=== PATIENT | male | born 1995 | race Caucasian/White ===

== ENCOUNTER 2017-01-24 08:12 | Emergency (ER) | payer SELFPAY ==
[~2017-01-24 08:12] MED LIST: CEPH500C PO; FAMO20TA5 PO; PRED20TA PO
[2017-01-24 09:00] VITALS: BP 0/0
== END 2017-01-24 09:00 | disposition left against medical advice (07) ==
LOC: EDUNIT# 08:12 → ER 08:14
DX: T15.90XA Foreign body on external eye, part unspecified, unspecified eye, initial encounter (principal)
CPT/HCPCS: 99281

== ENCOUNTER 2018-02-05 19:08 | Emergency (ER) | payer MEDICAID, OTHER ==
[~2018-02-05] VITALS: Ht 188 cm; Wt 104.3 kg
--- OUTSIDE RECORDS SUMMARY | 2018-02-05 19:12 | XMS REPORT ---
Author Author GUERITA RAZO Organization [facility] Address [address] [place] [address] Care Team Providers Care Ward Service Supervisor Name Role Phone GUERITA RAZO Unavailable PROBLEMS Type Condition ICD9-CM Code [id number] Code Onset Dates Condition Status SNOMED Code Problem Unspecified pruritic disorder 698.9 Active 233094526 Problem Rash and other nonspecific skin eruption 782.1 Active 751117620 Problem STATE HEP A (ADULT) DX V05.3 Active [id number] ALLERGIES No Known Allergies ENCOUNTERS Encounter Location Date Diagnosis [facility] [id number] [place] [phone] Dec, [facility] [address] [phone] Dec, Abrasion of sclera of right eye, initial encounter S05.8X1A [address] [id number] [place] [phone] Oct, [id number] [place] [phone] September, [id number] [place] [id number] September, IMMUNIZATIONS No Known Immunizations SOCIAL HISTORY Never Assessed REASON FOR VISIT foreign object in right eye. pt states it is sand off a roll grinder. happened 4 days ago. [email or web address] PLAN OF CARE VITAL SIGNS Height 71 in 2017-01-24 Weight 240.0 lbs 2017-01-24 Temperature 97.0 degrees Fahrenheit 2017-01-24 Heart Rate 84 bpm 2017-01-24 Respiratory Rate 20 2017-01-24 BMI 33.47 kg/m2 2017-01-24 Blood pressure systolic 118 mmHg 2017-01-24 Blood pressure diastolic 68 mmHg 2017-01-24 MEDICATIONS Medication Instructions Dosage Frequency Start Date End Date Duration Status Erythromycin 5 MG/GM Ophthalmic Four times a day 1 application 6h Dec, Jan, 10 day(s) Active RESULTS No Results PROCEDURES No Known procedures INSTRUCTIONS MEDICATIONS ADMINISTERED No Known Medications
--- OUTSIDE RECORDS SUMMARY | 2018-02-05 19:12 | XMS REPORT ---
Author Author WILLIE JACOBSEN Organization [facility] Address [address] [place] [address] Care Team Providers Care Sdet Name Role Phone WILLIE JACOBSEN Unavailable PROBLEMS Type Condition ICD9-CM Code LTM01-UG Code Onset Dates Condition Status SNOMED Code Problem Unspecified pruritic disorder 698.9 Active 793329914 Problem Rash and other nonspecific skin eruption 782.1 Active 904098586 Problem STATE HEP A (ADULT) DX V05.3 Active [id number] ALLERGIES No Information ENCOUNTERS Encounter Location Date Diagnosis [facility] [id number] [place] [phone] Dec, [facility] [id number] [place] [phone] Dec, Abrasion of sclera of right eye, initial encounter S05.8X1A [id number] [place] [phone] Oct, [id number] [place] [phone] September, [id number] [place] [phone] September, IMMUNIZATIONS No Known Immunizations SOCIAL HISTORY Never Assessed REASON FOR VISIT Eye Exam PLAN OF CARE VITAL SIGNS MEDICATIONS Unknown Medications RESULTS No Results PROCEDURES No Known procedures INSTRUCTIONS MEDICATIONS ADMINISTERED No Known Medications
--- OUTSIDE RECORDS SUMMARY | 2018-02-05 19:13 | XMS REPORT | Continuity of Care Document ---
Demographics Preferred Language Unknown Marital Status Unknown Adventism Affiliation Unknown Race Unknown Ethnic Group Unknown Author Author [facility] Address Unknown Phone Unavailable Allergies Active Description Code Type Severity Reaction Onset Reported/Identified Relationship to Patient Clinical Status Yes No Known Drug Allergies [id number] Drug Allergy Unknown N/A 10/10/2014 Medications There is no data. Problems Date Dx Coded Attending Type Code Diagnosis Diagnosed By 10/15/2012 V05.3 HEP B (ADULT) DX 10/15/2012 V05.3 HEP B (ADULT) DX 10/15/2012 V05.3 HEP B (ADULT) DX 11/20/2012 698.9 UNSPECIFIED PRURITIC DISORDER 11/20/2012 782.1 RASH AND OTHER NONSPECIFIC SKIN ERUPTION 10/10/2014 SHYLA HERMOSILLO Ot 708.9 URTICARIA NOS 10/10/2014 SHYLA HERMOSILLO Ot 782.1 NONSPECIF SKIN ERUPT NEC 10/11/2014 KYREE PAZ PASSENGER SCREENER Ot 782.1 NONSPECIF SKIN ERUPT NEC 10/13/2014 KYREE PAZ PASSENGER SCREENER Ot 782.1 12/17/2014 SHYLA HERMOSILLO Ot 881.00 12/17/2014 SHYLA HERMOSILLO Ot E000.0 12/17/2014 SHYLA HERMOSILLO Ot E849.3 12/17/2014 SHYLA HERMOSILLO Ot E920.3 12/20/2014 AMISHA BACH, JULIO CÉSAR [place] Ot V67.9 FOLLOW-UP EXAM NOS 12/26/2014 SHYLA HERMOSILLO Ot 276.50 VOLUME DEPLETION, UNSPECIFIED 12/26/2014 SHYLA HERMOSILLO Ot 780.4 DIZZINESS AND GIDDINESS 12/26/2014 SHYLA HERMOSILLO Ot 786.50 CHEST PAIN NOS 12/26/2014 SHYLA HERMOSILLO Ot 786.59 CHEST PAIN NEC 01/24/2017 MINOR BYNUM MD Ot T15.90XA FOREIGN BODY ON EXTERNAL EYE, PART UNSP, 01/26/2017 MINOR BYNUM MD Ot T15.90XA FOREIGN BODY ON EXTERNAL EYE, PART UNSP, Procedures There is no data. Results There is no data. Encounters ACCT No. Visit Date/Time Discharge Status Pt. Type Provider Facility Loc./Unit Complaint [id number] 11/20/2012 10:48:00 Document Registration [id number] 10/25/2012 13:35:00 Document Registration [id number] 10/15/2012 13:47:00 Document Registration [id number] 12/27/2014 02:23:33 ACT Document Registration [id number] 01/24/2017 08:14:00 01/24/2017 09:00:00 DIS Emergency FLETCHER BACH, MINOR Castano [facility] ER GRINDING WHEEL PIECE IN EYE [id number] 12/26/2014 13:33:00 12/26/2014 17:49:00 DIS Emergency SHYLA HERMOSILLO [facility] ER CHEST PAIN,DIZZINESS [id number] 12/20/2014 21:15:00 12/20/2014 22:16:00 DIS Emergency JULIO CÉSAR LION MD [facility] ER WOUND CHECK [id number] 12/17/2014 19:04:00 12/17/2014 21:00:00 DIS Emergency SHYLA HERMOSILLO [facility] ER [id number] 10/11/2014 11:37:00 10/11/2014 11:52:00 DIS Emergency KYREE PAZ APRN [facility] ER RASH [id number] 10/10/2014 11:34:00 10/10/2014 12:24:00 DIS Emergency SHYLA HERMOSILLO [facility] ER RASH
[2018-02-05] MEDS ORDERED: TETANUS,DIPTH,PERTUSS P/F (BOOSTRIX) 0.5 ML VIAL IM ONE (19:45)
[2018-02-05] MEDS ORDERED: LIDOCAINE 1% INJ 20 ML 20 ML VIAL INJ ONE (20:00)
--- NOTE | 2018-02-05 20:11 | ED Upper Extremity ---
General Chief Complaint: Laceration Stated Complaint: LEFT PINKIE SMASHED Nursing Triage Note: PT AMB TO ROOM #3 W/O DIFFICULTY. A&OX4. CO CRUSHING INJURY TO LT PINKIE FINGER. PT REPORTS HE CRUSHED LT PINKIE FINGER BETWEEN A DAYNA AND A TRACTOR APPROX 1400 THIS AFTERNOON. PT REPORTS HE "THINKS HE MIGHT NEED STITCHES." AREA NOTED TO BE NON APPROXIMATED, WITH SEROSANGUINOUS DRAINAGE. Nursing Sepsis Screen: No Definite Risk Source: patient Exam Limitations: no limitations History of Present Illness Date Seen by Provider: Feb 05, 2018 Time Seen by Provider: 19:20 Initial Comments Patient is a 22-year-old male who presents to the emergency room with reports smashing his left fifth finger in between a dayna and a tractor bucket around 1400 today. There is a laceration to the palmar surface of the left fifth finger that is 2 cm in length. There is also abrasions to the dorsal surface of the left fifth finger. Onset: this afternoon Pain/Injury Location: left 5th finger Method of Injury: other (smash) Allergies and Home Medications Allergies Coded Allergies: No Known Drug Allergies (Unverified , 10/10/14) Home Medications Cephalexin 500 Mg Capsule, 500 MG PO BID Prescribed by: FREDDIE GARCÍA on 02/05/182100 Patient Home Medication List Home Medication List Reviewed: Yes Review of Systems Constitutional: see HPI; No chills, No fever Skin: see HPI, other (laceration to fifth left finger.) All Other Systems Reviewed Negative Unless Noted: Yes Past Maztxuo-Dnzyar-Wwzuty Hx Past Med/Social Hx: Reviewed Nursing Past Med/Soc Hx Patient Social History Recent Foreign Travel: No Contact w/Someone Who Travel: No Recent Infectious Disease Expo: No Immunizations Up To Date Tetanus Booster (TDap): Less than 5yrs Seasonal Allergies Seasonal Allergies: No Past Medical History Reproductive Disorders: No Sexually Transmitted Disease: No Family Medical History Reviewed Nursing Family Hx No Pertinent Family Hx Physical Exam Vital Signs Vital Signs - First Documented 02/05/18 19:12 Temp 97.8 Pulse 75 Resp 16 B/P (MAP) 144/81 (102) Pulse Ox 97 O2 Delivery Room Air Capillary Refill : Less Than 3 Seconds Height, Weight, BMI Height: 6'2.00" Weight: 230lbs. oz. 104.849519kz; BMI Method:Stated General Appearance: WD/WN, no apparent distress HEENT: PERRL/EOMI, normal ENT inspection, TMs normal, pharynx normal Cardiovascular: normal peripheral pulses, regular rate, rhythm, no edema, no gallop, no JVD, no murmur Respiratory: chest non-tender, lungs clear, normal breath sounds, no respiratory distress, no accessory muscle use Hand: Left (fifth finger laceration) Neurologic/Tendon: normal sensation, normal motor functions, normal tendon functions Neurologic/Psychiatric: alert, normal mood/affect, oriented x 3 Skin: normal color, warm/dry, other (2 cm laceration to the palmar surface of the left fifth finger. Skin flap to the palmar surface of the left fifth finger. ) Procedures/Interventions Wound Location: Lower Extremities (left fifth finger) Wound Length (cm): 2 Wound's Depth, Shape: linear, flap Irrigated w/ Saline (ccs): 300 Betadine Prep?: Yes Anesthesia: 1% Lidocaine Volume Anesthetic (ccs): 3 Suture: Prolene Suture Size: 5-0 Number of Sutures: 4 Progress The laceration anesthetized with 3 mL of lidocaine without epinephrine. The wound was cleaned and irrigated with normal saline and Betasept and Betadine with approximately 300 ml irrigation, foreign bodies were irrigated out. The wound was closed with 4 simple interrupted sutures of 5-0 Prolene. Bleeding was controlled and minimal. A dressing of Telfa soft and a finger splint/ immobilizer was applied. Progress/Results/Core Measures Results/Orders My Orders Orders - BERNOT,FREDDIE Finger(S) (02/05/18 19:36) Dipht,Pertuss(Acell),Tet Adult (Boostrix (02/05/18 19:45) Lidocaine 1% Inj 20 Ml (Xylocaine 1% Inj (02/05/18 20:00) Cephalexin Capsule (Keflex Capsule) (02/05/18 21:15) Acetaminophen Tablet (Tylenol Tablet) (02/05/18 21:15) Medications Given in ED Current Medications Medications Dose Ordered Sig/Nelson Route Start Time Stop Time Status Last Admin Dose Admin Acetaminophen 1,000 mg ONCE ONCE PO 02/05/18 21:15 02/05/18 21:16 DC 02/05/18 21:13 1,000 MG Cephalexin HCl 500 mg ONCE ONCE PO 9/11/18 21:15 02/05/18 21:16 DC 02/05/18 21:13 500 MG Diphtheria/ Tetanus/Acell Pertussis 0.5 ml ONCE ONCE IM 02/05/18 19:45 02/05/18 19:46 DC 02/05/18 20:06 0.5 ML Lidocaine HCl 20 ml ONCE ONCE INJ 02/05/18 20:00 02/05/18 20:01 DC 02/05/18 20:09 10 ML Vital Signs/I&O 02/05/18 19:12 Temp 97.8 Pulse 75 Resp 16 B/P (MAP) 144/81 (102) Pulse Ox 97 O2 Delivery Room Air Blood Pressure Mean: 102 Progress Progress Note : Time: 21:00 Progress Note Patient seen and evaluated the patient. I will be treating him prophylactically with Keflex for infection. He agrees with plan of care, plans for follow-up, return precautions were given. Diagnostic Imaging Diagonstic Imaging: Xray Plain Films/CT/US/NM/MRI: hand Comments VIA [facility]. [place], [place] NAME: KATHY MUSTAFA [facility] REC#: [id number] PT STATUS: REG ER : 1995 PHYSICIAN: FREDDIE GARCÍA ADMIT DATE: 02/05/18/ER Draft Date of Exam:02/05/18 FINGER(S) EXAMINATION: Left hand, single view. Left fifth finger, 2 additional views. COMPARISON: None. HISTORY: 22-year-old male, smashing injury and laceration of the fifth digit. FINDINGS: There is abnormal attenuation within the soft tissues of the fifth digit compatible with provided history of soft tissue injury. There are small punctate high attenuation foci projecting near the volar skin surface centered in the region of the fifth proximal interphalangeal joint which may relate to foreign bodies. These measure 1-2 mm in size. There is no identified acute fracture. There is no subluxation or dislocation. There is no cortical or aggressive bone destruction. IMPRESSION: 1. Findings compatible with soft tissue injury of the fifth digit with findings most notable at the level of the fifth proximal interphalangeal joint with multiple small 1-2 mm foreign bodies projecting near the volar skin margin. 2. No identified acute fracture or dislocation. Dictated on workstation # [id number] Dict: 02/05/182014 Trans: 02/05/18 2037 JUAN [id number] Interpreted by: TONIO SANTANA MD Electronically signed by: Departure Impression Primary Impression: Laceration Disposition: 01 HOME, SELF-CARE Condition: Stable/Unchanged Departure-Patient Inst. Decision time for Depature: 21:00 Referrals: NO,LOCAL PHYSICIAN (PCP) Primary Care Physician Patient Instructions: Laceration Repair With Stitches (DC) Add. Discharge Instructions: Take medication as directed. Watch for signs of infection such as increased redness, drainage, swelling, fevers. Change dressing daily. He can return back here to the emergency room in 7 days for suture removal. Return back to the emergency room for any worsening symptoms or concerns as needed. All discharge instructions reviewed with patient and/or family. Voiced understanding. Scripts Cephalexin (Keflex) 500 Mg Capsule 500 MG PO BID for 7 Days, #14 CAP Prov: FREDDIE GARCÍA 02/05/18 Images Extremities-Upper 1 - Abrasion 2 - Abrasion 3 - Abrasion 1 - Laceration 2 - Other-See Progress Note 3 - Other-See Progress Note Progress 2 and 3 are skin flaps. FREDDIE GARCÍA Feb 05, 2018 20:11
--- NOTE | 2018-02-05 20:38 | Diagnostic Imaging Report ---
EXAMINATION: Left hand, single view. Left fifth finger, 2 additional views. COMPARISON: None. HISTORY: 22-year-old male, smashing injury and laceration of the fifth digit. FINDINGS: There is abnormal attenuation within the soft tissues of the fifth digit compatible with provided history of soft tissue injury. There are small punctate high attenuation foci projecting near the volar skin surface centered in the region of the fifth proximal interphalangeal joint which may relate to foreign bodies. These measure 1-2 mm in size. There is no identified acute fracture. There is no subluxation or dislocation. There is no cortical or aggressive bone destruction. IMPRESSION: 1. Findings compatible with soft tissue injury of the fifth digit with findings most notable at the level of the fifth proximal interphalangeal joint with multiple small 1-2 mm foreign bodies projecting near the volar skin margin. 2. No identified acute fracture or dislocation. Dictated by: Dictated on workstation # [id number]
[2018-02-05] MEDS ORDERED: CEPH-507 PO (21:01)
[2018-02-05 21:13] VITALS: BP 153/79
[2018-02-05] MEDS ORDERED: CEPHALEXIN 250 MG (KEFLEX) CAP PO ONE (21:15)
[2018-02-05] MEDS ORDERED: ACETAMINOPHEN 500 MG TAB (TYLENOL) PO ONE (21:15)
== END 2018-02-05 21:13 | disposition home or self-care (01) ==
LOC: EDUNIT# 19:08 → ER 19:09
DX: S61.217A Laceration without foreign body of left little finger without damage to nail, initial encounter (principal); Z23 Encounter for immunization; W23.1XXA Caught, crushed, jammed, or pinched between stationary objects, initial encounter
CPT/HCPCS: 12042; 64450; 73140; 90471; 90715

== ENCOUNTER 2019-09-16 19:03 | Emergency (ER) | payer MEDICAID ==
[~2019-09-16] VITALS: Ht 185 cm; Wt 83.0 kg
[~2019-09-16 19:03] MED LIST changes: +CEPH-507 PO
--- NOTE | 2019-09-16 19:18 | ED Upper Extremity ---
General Chief Complaint: Upper Extremity Stated Complaint: L SHOULDER PAIN Source: patient Exam Limitations: no limitations History of Present Illness Date Seen by Provider: Sep 16, 2019 Time Seen by Provider: 19:17 Initial Comments To ER with left shoulder pain after he jumped off a 4 [address] while it was rolling over. It did not land on him and there were no other injuries. He landed on his left shoulder now it hurts. Onset: just prior to arrival Severity: moderate Pain/Injury Location: left shoulder Method of Injury: fell Modifying Factors: Worse With Movement Allergies and Home Medications Allergies Coded Allergies: No Known Drug Allergies (Unverified , 09/16/19) Home Medications Cephalexin 500 Mg Capsule, 500 MG PO BID Prescribed by: FREDDIE GARCÍA on 02/05/182100 Patient Home Medication List Home Medication List Reviewed: Yes Review of Systems Constitutional: see HPI EENTM: see HPI Respiratory: no symptoms reported Cardiovascular: no symptoms reported Genitourinary: no symptoms reported Musculoskeletal: see HPI Skin: no symptoms reported Psychiatric/Neurological: No Symptoms Reported Past Alcivjw-Eequuj-Aqypjq Hx Patient Social History Type Used: Smokeless Tobacco 2nd Hand Smoke Exposure: Yes (REPORTS CHEWING 3 CANS OF CHEW PER DAY) Recent Foreign Travel: No Contact w/Someone Who Travel: No Immunizations Up To Date Tetanus Booster (TDap): Less than 5yrs Seasonal Allergies Seasonal Allergies: No Past Medical History Surgeries: No Respiratory: No Cardiac: No Neurological: No Reproductive Disorders: No Sexually Transmitted Disease: No Gastrointestinal: No Musculoskeletal: No Endocrine: No Cancer: No Psychosocial: No Integumentary: No Blood Disorders: No Family Medical History No Pertinent Family Hx Physical Exam Vital Signs Vital Signs - First Documented 09/16/19 19:14 Temp 36.9 Pulse 91 Resp 20 B/P (MAP) 132/86 (101) Pulse Ox 98 O2 Delivery Room Air Capillary Refill : Height, Weight, BMI Height: 6'2.00" Weight: 230lbs. oz. 104.930382mc; BMI Method:Stated General Appearance: WD/WN, no apparent distress Respiratory: no respiratory distress, no accessory muscle use Shoulder: normal inspection, pain, soft tissue tenderness (no obvious defo rmity, slightly limited range of motion) Elbow/Forearm: normal inspection, Left Wrist: Yes normal inspection, Yes non-tender Neurologic/Tendon: normal sensation, normal motor functions, normal tendon functions Neurologic/Psychiatric: alert, normal mood/affect, oriented x 3 Skin: normal color, warm/dry Procedures/Interventions Suture Size: 5-0 Progress/Results/Core Measures Results/Orders My Orders Orders - KYREE PAZ APRN Shoulder, Left, 3 Views (09/16/19 19:16) Vital Signs/I&O 09/16/19 19:14 Temp 36.9 Pulse 91 Resp 20 B/P (MAP) 132/86 (101) Pulse Ox 98 O2 Delivery Room Air Departure Impression Primary Impression: Strain of AC joint Qualified Codes: S46.912A - Strain of unspecified muscle, fascia and tendon at shoulder and upper arm level, left arm, initial encounter Additional Impression: Shoulder contusion Qualified Codes: S40.012A - Contusion of left shoulder, initial encounter Disposition: 01 HOME, SELF-CARE Condition: Stable Departure-Patient Inst. Decision time for Depature: 19:52 Referrals: NO,LOCAL PHYSICIAN (PCP/Family) Primary Care Physician Patient Instructions: Shoulder Sprain Add. Discharge Instructions: Tylenol Or Motrin for pain control 2. Sling as directed 3. All discharge instructions reviewed with patient and/or family. Voiced understanding. KYREE PAZ APRN Sep 16, 2019 19:18
--- NOTE | 2019-09-16 19:56 | Diagnostic Imaging Report ---
INDICATION: Shoulder pain TECHNIQUE: Three views of the left shoulder CORRELATION STUDY: None FINDINGS: The glenohumeral and acromioclavicular alignment are maintained and unremarkable. There is no evidence for acute fracture or dislocation. The visualized soft tissues are unremarkable. IMPRESSION: 1. Negative for acute bony abnormality about the shoulder. Dictated by: Dictated on workstation # [id number]
[2019-09-16 20:02] VITALS: BP 128/82
== END 2019-09-16 20:02 | disposition home or self-care (01) ==
LOC: EDUNIT# 19:03 → ER 19:05
DX: S46.912A Strain of unspecified muscle, fascia and tendon at shoulder and upper arm level, left arm, initial encounter (principal); F17.220 Nicotine dependence, chewing tobacco, uncomplicated; W17.89XA Other fall from one level to another, initial encounter
CPT/HCPCS: 73030

== ENCOUNTER 2020-10-11 14:31 | Emergency (ER) | payer MEDICAID ==
[~2020-10-11] VITALS: Ht 188 cm; Wt 113.9 kg
[2020-10-11] MEDS ORDERED: LACTATED RINGERS 1,000 ML IV ONE (15:15)
[2020-10-11 15:48] LABS: BASOPHILS # (AUTO) 0.1 10^3/uL (0.0-0.1); BASOPHILS % (AUTO) 1 % (0-10); EOSINOPHILS # (AUTO) 0.2 10^3/uL (0.0-0.3); EOSINOPHILS % (AUTO) 2 % (0-10); HEMATOCRIT 45 % (40-54); HEMOGLOBIN 16.1 g/dL (13.3-17.7); LYMPHOCYTES % (AUTO) 44 % (12-44); MEAN CORPUSCULAR HEMOGLOBIN 29 pg (25-34); MEAN CORPUSCULAR HGB CONC 36 g/dL (32-36); MEAN CORPUSCULAR VOLUME 82 fL (80-99); MEAN PLATELET VOLUME 10.3 fL (9.0-12.2); MONOCYTES % (AUTO) 11 % (0-12); NEUTROPHILS # (AUTO) 3.8 10^3/uL (1.8-7.8); NEUTROPHILS % (AUTO) 42 % (42-75); PLATELET COUNT 233 10^3/uL (130-400); WHITE BLOOD COUNT 9.1 10^3/uL (4.3-11.0)
[2020-10-11 15:51] LABS: ALBUMIN 4.3 GM/DL (3.2-4.5); CHLORIDE 99 MMOL/L (98-107); POTASSIUM 3.2 MMOL/L (3.6-5.0); SODIUM 138 MMOL/L (135-145)
[2020-10-11 15:53] LABS: CALCIUM 8.8 MG/DL (8.5-10.1)
[2020-10-11 15:54] LABS: GLUCOSE 93 MG/DL (70-105); TOTAL PROTEIN 6.9 GM/DL (6.4-8.2)
[2020-10-11 15:55] LABS: BILIRUBIN,URINE 2+ (NEGATIVE); CLARITY,URINE CLEAR; COLOR,URINE ORANGE; GLUCOSE, URINE (UA) NEGATIVE (NEGATIVE); KETONES,URINE 2+ (NEGATIVE); LEUKOCYTE ESTERASE ,URINE NEGATIVE (NEGATIVE); NITRITE,URINE POSITIVE (NEGATIVE); PH,URINE 6.5 (5-9); PROTEIN,URINE 1+ (NEGATIVE)
[2020-10-11 15:55] LABS: CARBON DIOXIDE 29 MMOL/L (21-32)
[2020-10-11 15:56] LABS: BILIRUBIN,TOTAL 1.8 MG/DL (0.1-1.0)
[2020-10-11 15:57] LABS: ALKALINE PHOSPHATASE 65 U/L (40-136); CREATININE SERUM 0.89 MG/DL (0.60-1.30); GFR ESTIMATED > 60
[2020-10-11 15:58] LABS: BUN/CREATININE RATIO 9
[2020-10-11 16:00] LABS: ALANINE AMINOTRANSFERASE 119 U/L (0-55)
[2020-10-11 16:03] LABS: BAND NEUTROPHILS 1 %; LYMPHOCYTES % (MANUAL) 42 %; MONOCYTES % (MANUAL) 17 %; NEUTROPHILS % (MANUAL) 40 %; RBC MORPH NORMAL
[2020-10-11 16:06] LABS: BACTERIA,URINE NEGATIVE /HPF; RENAL EPITHELIAL CELLS,URINE 0-2 /HPF
[2020-10-11 16:08] LABS: AMPHETAMINE SCREEN, URINE NEGATIVE (NEGATIVE); BARBITURATE SCREEN URINE NEGATIVE (NEGATIVE); BENZODIAZEPINES SCREEN URINE NEGATIVE (NEGATIVE); CANNABINOID SCREEN, URINE NEGATIVE (NEGATIVE); COCAINE SCREEN URINE NEGATIVE (NEGATIVE); METHADONE STAT NEGATIVE (NEGATIVE); METHAMPHETAMINE SCREEN URINE S NEGATIVE (NEGATIVE); OPIATE SCREEN URINE NEGATIVE (NEGATIVE); OXYCODONE STAT NEGATIVE (NEGATIVE); PROPOXYPHENE STAT NEGATIVE (NEGATIVE); TRICYCLIC ANTIDEPRESSANTS SCRE NEGATIVE (NEGATIVE)
[2020-10-11] MEDS ORDERED: NS 100 ML (IVPB) BAG IV ONE (16:30)
[2020-10-11] MEDS ORDERED: IOHEXOL 350 MG/ML 100 ML (OMNIPAQUE 350) VIAL IV ONE (16:30)
[2020-10-11] MEDS ORDERED: HOLD METFORMIN - RECEIVED CONTRAST 20 ML VIAL IV SCH (16:30)
[2020-10-11] MEDS ORDERED: cefTRIAXone FOR IV USE 1,000 MG in WATER (STERILE) FOR INJECTION 10 ML IV ONE (17:00)
[2020-10-11] MEDS ORDERED: NS IV 1000 ML 1,000 ML IV SCH (17:00)
--- NOTE | 2020-10-11 17:00 | Diagnostic Imaging Report ---
PROCEDURE: CT abdomen and pelvis with contrast. TECHNIQUE: Multiple contiguous axial images were obtained through the abdomen and pelvis after administration of intravenous contrast. Auto Exposure Controls were utilized during the CT exam to meet ALARA standards for radiation dose reduction. All CT scans use one or more of the following dose optimizing techniques: automated exposure control, MA and/or KvP adjustment based on patient size and exam type or iterative reconstruction. DATE: October 11, 2020. COMPARISON: None. INDICATION: 25-year-old male, abdominal pain, nausea, vomiting. FINDINGS: There is mild dependent atelectasis in the right and left lower lobes. The heart is not enlarged. There is no identified pericardial effusion. The liver is unremarkable in size and contour. There is no identified liver lesion. The main, right, and left portal veins are patent. The gallbladder is unremarkable. There is no biliary ductal dilation. The main pancreatic duct is not abnormally dilated. Unremarkable appearance of the pancreatic parenchyma. There is an accessory splenule on axial image 31. The spleen is not enlarged. The adrenal glands are unremarkable. Unremarkable appearance of the renal parenchyma. The urinary collecting systems are not distended. There is no identified renal or ureteral stone. Urinary bladder is unremarkable. The intestinal tract is not distended. The appendix is unremarkable. There is no free intraperitoneal air. There is no drainable fluid collection. There is no free pelvic fluid. There is a superior mesenteric lymph node on axial image 20 which measures 10 mm in short axis. There are several mesenteric lymph nodes on axial image 38 and adjacent sequential images measuring up to 13 mm in short axis. There is no acute bony abnormality. There is mild to moderate disc height loss at L5-S1. IMPRESSION: CT ABDOMEN AND PELVIS. 1. Enlarged superior mesenteric and mid mesenteric lymph nodes measuring up to approximately 13 mm in short axis. These are of unclear exact etiology. Further workup for definitive diagnosis is needed. Lymphoma and metastatic pam disease are both in the differential diagnosis. Benign etiologies are also included in the differential diagnosis. Dictated by: Dictated on workstation # [id number]
[2020-10-11] MEDS ORDERED: DOXY100T2 PO (17:54)
--- NOTE | 2020-10-11 17:54 | ED GI ---
General Chief Complaint: Abdominal/GI Problems Stated Complaint: N/V,DIARRHEA Nursing Triage Note: pt presents ambulatory to er today with significant other with chief complaint of N/V/D since last sunday (10/05/2020), pt has been seen at [facility] walk in clinic twice for this complaint and reports no improvement Sepsis Screen: No Definite Risk Source of Information: Patient Exam Limitations: No Limitations History of Present Illness Date Seen by Provider: October 11, 2020 Time Seen by Provider: 14:35 Initial Comments This is a well-appearing 25-year-old male presents to the ER via POV with his spouse for complaints of persistent nausea, vomiting, diarrhea since October 05. States that he has been seen twice this past week at [facility] for same complaint and has been tested for influenza and Covid with negative results. Reports 5/10 intermittent "achy" mid abdominal pain. No aggravating or alleviating factors. States he attempted to eat chili cheese fries this afternoon but he immediately vomited them back up. He is passing gas frequently and last BM was today [employer]. Has no fever, chills, cough, shortness of breath, complaints, dark or bloody stools. He smokes 1.5 PPD cigarettes and has 3 cans of chew daily. Denies alcohol use. Last alcohol intake reports over a month ago. Allergies and Home Medications Allergies Coded Allergies: No Known Drug Allergies (Unverified , 09/16/19) Home Medications Cephalexin 500 Mg Capsule, 500 MG PO BID Prescribed by: FREDDIE GARCÍA on 02/05/18 210 Doxycycline Hyclate 100 Mg Tablet, 100 MG PO BID Prescribed by: LILIBETH MAGALLON on 10/11/20 1754 Patient Home Medication List Home Medication List Reviewed: Yes Review of Systems Review of Systems Constitutional: no symptoms reported EENTM: No Symptoms Reported Respiratory: No Symptoms Reported Cardiovascular: No Symptoms Reported Gastrointestinal: See HPI Genitourinary: No Symptoms Reported Musculoskeletal: no symptoms reported Skin: no symptoms reported Psychiatric/Neurological: No Symptoms Reported Endocrine: No Symptoms Reported Hematologic/Lymphatic: No Symptoms Reported Past Yaduvny-Gudnuo-Gawmkm Hx Patient Social History Alcohol Use: Occasionally Uses Number of Drinks Today: 0 Alcohol Beverage of Choice: Beer Smoking Status: Heavy Tobacco Smoker Type Used: Cigarettes, Smokeless Tobacco 2nd Hand Smoke Exposure: Yes (REPORTS CHEWING 3 CANS OF CHEW PER DAY, also 1 1/2 pack a day smoker) Recent Infectious Disease Expo: No Recent Hopitalizations: No Immunizations Up To Date Tetanus Booster (TDap): Less than 5yrs Seasonal Allergies Seasonal Allergies: No Past Medical History Surgeries: No Respiratory: No Cardiac: No Neurological: No Reproductive Disorders: No Sexually Transmitted Disease: No Gastrointestinal: Yes Gastroesophageal Reflux Musculoskeletal: No Endocrine: No HEENT: No Cancer: No Psychosocial: No Integumentary: No Blood Disorders: No Family Medical History No Pertinent Family Hx Physical Exam Vital Signs Vital Signs - First Documented 10/11/20 10/11/20 14:33 18:15 Temp 35.2 Pulse 69 Resp 16 B/P (MAP) 141/83 (102) Pulse Ox 99 O2 Delivery Room Air Capillary Refill : Less Than 3 Seconds Height/Weight/BMI Height: 6'2.00" Weight: 230lbs. oz. 104.644729xu; 32.00 BMI Method:Stated General Appearance: WD/WN, no apparent distress HEENT: PERRL/EOMI, normal ENT inspection Neck: full range of motion, normal inspection Respiratory: lungs clear, normal breath sounds, no respiratory distress, no accessory muscle use Cardiovascular: regular rate, rhythm, no edema, no murmur Gastrointestinal: normal bowel sounds, soft; No guarding, No rebound; tenderness (mid umbilical abdominal pain ); No hernia, No mass, No hepatomegaly, No spleenomegaly Extremities: normal range of motion, non-tender, normal inspection, no pedal edema Neurologic/Psychiatric: no motor/sensory deficits, alert, normal mood/affect, oriented x 3 Skin: normal color, warm/dry Procedures/Interventions Suture Size: 5-0 Progress/Results/Core Measures Results/Orders Lab Results Laboratory Tests Test 10/11/20 14:38 10/11/20 15:48 Range/Units White Blood Count 9.1 4.3-11.0 10^3/uL Red Blood Count 5.55 H 4.30-5.52 10^6/uL Hemoglobin 16.1 13.3-17.7 g/dL Hematocrit 45 40-54 % Mean Corpuscular Volume 82 80-99 fL Mean Corpuscular Hemoglobin 29 25-34 pg Mean Corpuscular Hemoglobin Concent 36 32-36 g/dL Red Cell Distribution Width 12.6 10.0-14.5 % Platelet Count 233 130-400 10^3/uL Mean Platelet Volume 10.3 9.0-12.2 fL Immature Granulocyte % (Auto) 0 % Neutrophils (%) (Auto) 42 42-75 % Lymphocytes (%) (Auto) 44 12-44 % Monocytes (%) (Auto) 11 0-12 % Eosinophils (%) (Auto) 2 0-10 % Basophils (%) (Auto) 1 0-10 % Neutrophils # (Auto) 3.8 1.8-7.8 10^3/uL Lymphocytes # (Auto) 4.0 1.0-4.0 10^3/uL Monocytes # (Auto) 1.0 0.0-1.0 10^3/uL Eosinophils # (Auto) 0.2 0.0-0.3 10^3/uL Basophils # (Auto) 0.1 0.0-0.1 10^3/uL Immature Granulocyte # (Auto) 0.0 0.0-0.1 10^3/uL Neutrophils % (Manual) 40 % Lymphocytes % (Manual) 42 % Monocytes % (Manual) 17 % Band Neutrophils 1 % Blood Morphology Comment NORMAL Sodium Level 138 135-145 MMOL/L Potassium Level 3.2 L 3.6-5.0 MMOL/L Chloride Level 99 98-107 MMOL/L Carbon Dioxide Level 29 21-32 MMOL/L Anion Gap 10 5-14 MMOL/L Blood Urea Nitrogen 8 7-18 MG/DL Creatinine 0.89 0.60-1.30 MG/DL Estimat Glomerular Filtration Rate > 60 BUN/Creatinine Ratio 9 Glucose Level 93 70-105 MG/DL Calcium Level 8.8 8.5-10.1 MG/DL Corrected Calcium 8.6 8.5-10.1 MG/DL Total Bilirubin 1.8 H 0.1-1.0 MG/DL Aspartate Amino Transf (AST/SGOT) 65 H 5-34 U/L Alanine Aminotransferase (ALT/SGPT) 119 H 0-55 U/L Alkaline Phosphatase 65 40-136 U/L Total Creatine Kinase 201 H 30-200 U/L C-Reactive Protein High Sensitivity 1.05 H 0.00-0.50 MG/DL Total Protein 6.9 6.4-8.2 GM/DL Albumin 4.3 3.2-4.5 GM/DL Serum Alcohol < 10 <10 MG/DL Urine Color ORANGE Urine Clarity CLEAR Urine pH 6.5 5-9 Urine Specific [place] 1.025 H 1.016-1.022 Urine Protein 1+ H NEGATIVE Urine Glucose (UA) NEGATIVE NEGATIVE Urine Ketones 2+ H NEGATIVE Urine Nitrite POSITIVE H NEGATIVE Urine Bilirubin 2+ H NEGATIVE Urine Urobilinogen 1.0 < = 1.0 MG/DL Urine Leukocyte Esterase NEGATIVE NEGATIVE Urine RBC (Auto) NEGATIVE NEGATIVE Urine RBC NONE /HPF Urine WBC 5-10 H /HPF Urine Squamous Epithelial Cells 2-5 /HPF Urine Renal Epithelial Cells 0-2 /HPF Urine Crystals NONE /LPF Urine Bacteria NEGATIVE /HPF Urine Casts NONE /LPF Urine Mucus LARGE H /LPF Urine Culture Indicated YES Urine Opiates Screen NEGATIVE NEGATIVE Urine Oxycodone Screen NEGATIVE NEGATIVE Urine Methadone Screen NEGATIVE NEGATIVE Urine Propoxyphene Screen NEGATIVE NEGATIVE Urine Barbiturates Screen NEGATIVE NEGATIVE Ur Tricyclic Antidepressants Screen NEGATIVE NEGATIVE Urine Phencyclidine Screen NEGATIVE NEGATIVE Urine Amphetamines Screen NEGATIVE NEGATIVE Urine Methamphetamines Screen NEGATIVE NEGATIVE Urine Benzodiazepines Screen NEGATIVE NEGATIVE Urine Cocaine Screen NEGATIVE NEGATIVE Urine Cannabinoids Screen NEGATIVE NEGATIVE Micro Results Microbiology 10/11/20 C. difficile GDH Antigen & Toxins - Final, Resulted 10/11/20 Stool Culture, Resulted Pending 10/11/20 Fecal Leukocyte Stain - Final, Complete 10/11/20 Urine Culture - Final, Complete NO GROWTH My Orders Orders - LILIBETH MAGALLON MERCHANDISE EXAMINER Ua Culture If Indicated (10/11/20 14:35) Drug Screen Stat (Urine) (10/11/20 14:35) Alcohol (10/11/20 14:35) Cbc With Automated Diff (10/11/20 14:55) Comprehensive Metabolic Panel (10/11/20 14:55) Hs C Reactive Protein (10/11/20 14:55) Fecal Wbc (10/11/20 14:55) C Difficile Ag + Toxin A/B. (10/11/20 14:55) Stool Culture (10/11/20 14:55) Lactated Ringers (Lr 1000 Ml Iv Solution (10/11/20 15:15) Manual Differential (10/11/20 14:38) Creatine Kinase (10/11/20 15:50) Ct Abdomen/Pelvis W (10/11/20 16:03) Urine Culture (10/11/20 15:48) Chlamydia Trachomatis Urine (10/11/20 16:12) Neis Walker Dna Urine Test (10/11/20 16:12) Iohexol Injection (Omnipaque 350 Mg/Ml 1 (10/11/20 16:30) Received Contrast (Hold Metformin- Contr (10/11/20 16:30) Ns (Ivpb) (Sodium Chloride 0.9% Ivpb Bag (10/11/20 16:30) Ns Iv 1000 Ml (Sodium Chloride 0.9%) (10/11/20 17:00) Ceftriaxone For Iv Use (Rocephin For I (10/11/20 17:00) Medications Given in ED Vital Signs/I&O 10/11/20 10/11/20 14:33 18:15 Temp 35.2 Pulse 69 68 Resp 16 16 B/P (MAP) 141/83 (102) 122/73 Pulse Ox 99 O2 Delivery Room Air 10/12/20 00:00 Intake Total 2009 ml Balance 2009 ml Blood Pressure Mean: 102 Progress Progress Note : Progress Note Patient examined and in no acute distress. Orders placed for basic labs, lipase, drug screen, ETOH, UA, CK. This could represent gastroenteritis, infectious/ischemic colitis, IBD, diverticulitis. Orders placed for 1 liter LR. Reports pain is tolerable at this time. Labs reviewed and CBC unremarkable. CMP: K-3.2, TB-1.8, AST-65, ALT-119, CK-201, CRP-1.05. UA-positive nitrite, WBC-10-25. Orders placed for CT abd/pelvis with contrast shows unremarkable liver, enlarged superior mesenteric and mid mesenteric lymph nodes, unclear etiology. Further workup for definitive diagnosis is needed. Lymphoma and metastatic pam disease are both in the differential diagnosis. Called Dr. Rosa with oncology for follow up evaluation, she recommendation he establish with a primary care provider to monitor patient. Does not need urgent treatment/follow up at this time. Cdiff neg. Stool culture pending. Reviewed findings with patient and strongly recommended he establish with primary care provider to monitor mesenteric lymph nodes and elevated LFT's. His spouse works at [facility] and states she will help his establish with a PCP at [facility]. He has STI testing pending, given Rocephin 1gm IV in ED and rx for Doxycycline. Reviewed discharge POC and he is agreeable with plan. No concerns/questions voiced at time of discharge. Diagnostic Imaging Diagonstic Imaging: CT Plain Films/CT/US/NM/MRI: abdomen, pelvis Comments [facility] [place], [place] NAME: KATHY MUSTAFA [facility] REC#: [id number] PT STATUS: REG ER : 1995 PHYSICIAN: LILIBETH MAGALLON APRN ADMIT DATE: 10/11/20/ER Signed Date of Exam:10/11/20 CT ABDOMEN/PELVIS W PROCEDURE: CT abdomen and pelvis with contrast. TECHNIQUE: Multiple contiguous axial images were obtained through the abdomen and pelvis after administration of intravenous contrast. Auto Exposure Controls were utilized during the CT exam to meet ALARA standards for radiation dose reduction. All CT scans use one or more of the following dose optimizing techniques: automated exposure control, MA and/or KvP adjustment based on patient size and exam type or iterative reconstruction. DATE: October 11, 2020. COMPARISON: None. INDICATION: 25-year-old male, abdominal pain, nausea, vomiting. FINDINGS: There is mild dependent atelectasis in the right and left lower lobes. The heart is not enlarged. There is no identified pericardial effusion. The liver is unremarkable in size and contour. There is no identified liver lesion. The main, right, and left portal veins are patent. The gallbladder is unremarkable. There is no biliary ductal dilation. The main pancreatic duct is not abnormally dilated. Unremarkable appearance of the pancreatic parenchyma. There is an accessory splenule on axial image 31. The spleen is not enlarged. The adrenal glands are unremarkable. Unremarkable appearance of the renal parenchyma. The urinary collecting systems are not distended. There is no identified renal or ureteral stone. Urinary bladder is unremarkable. The intestinal tract is not distended. The appendix is unremarkable. There is no free intraperitoneal air. There is no drainable fluid collection. There is no free pelvic fluid. There is a superior mesenteric lymph node on axial image 20 which measures 10 mm in short axis. There are several mesenteric lymph nodes on axial image 38 and adjacent sequential images measuring up to 13 mm in short axis. There is no acute bony abnormality. There is mild to moderate disc height loss at L5-S1. IMPRESSION: CT ABDOMEN AND PELVIS. 1. Enlarged superior mesenteric and mid mesenteric lymph nodes measuring up to approximately 13 mm in short axis. These are of unclear exact etiology. Further workup for definitive diagnosis is needed. Lymphoma and metastatic pam disease are both in the differential diagnosis. Benign etiologies are also included in the differential diagnosis. Dictated by: Dictated on workstation # [id number] Dict: 10/11/20 1652 Trans: 10/11/205 [facility] [id number] Interpreted by: TONIO SANTANA MD Electronically signed by: TONIO SANTANA MD 10/11/20 7370 Reviewed: Reviewed by Me Departure Communication (Admissions) Time/Spoke to Consulting Phy: 17:[address] Rosa with oncology. Impression Primary Impression: Urinary tract infection Disposition: HOME, SELF-CARE Condition: Improved Departure-Patient Inst. Decision time for Depature: 17:51 Referrals: NO,LOCAL PHYSICIAN (PCP/Family) Primary Care Physician Patient Instructions: Urinary Tract Infections in Adults Add. Discharge Instructions: Plan: 1. Establish with a primary care provider and follow up regarding CT results. 2. Drink clear liquids, advance diet slowly as tolerated. 3. Continue Zofran and Phenergan as directed. 4. Drink plenty of fluids. 5. Take Doxycycline 100mg by mouth twice a day for 7 days. 6. Avoid direct sunlight while taking antibiotics. Use sunscreen if you will be exposed to the sun. 7. Return to ER for any new, concerning, or worsening symptoms. All discharge instructions reviewed with patient and/or family. Voiced understanding. Scripts Doxycycline Hyclate (Doxycycline Hyclate) 100 Mg Tablet 100 MG PO BID for 7 Days, #14 TAB 0 Refills Prov: LILIBETH MAGALLON APRN 10/11/20 Copy Copies To 1: [facility]/LILIBETH MANCERA APRN October 11, 2020 17:54
[2020-10-11 18:15] VITALS: BP 122/73
== END 2020-10-11 18:15 | disposition home or self-care (01) ==
LOC: EDUNIT# 14:31 → ER 14:33
DX: N39.0 Urinary tract infection, site not specified (principal); R79.89 Other specified abnormal findings of blood chemistry; R59.0 Localized enlarged lymph nodes; F17.210 Nicotine dependence, cigarettes, uncomplicated; F17.220 Nicotine dependence, chewing tobacco, uncomplicated
CPT/HCPCS: 74177; 80053; 80306; 81000; 82550; 85007; 85027; 86141; 87015; 87045; 87046; 87088; 87324; 87449; 87491; 87591; 87899; 89055; 99284; G0480; 36415; 80320

== ENCOUNTER 2022-07-24 17:41 | Emergency (ER) | payer MEDICAID ==
[~2022-07-24 17:41] MED LIST changes: +DOXY100T2 PO
--- NOTE | 2022-07-24 18:28 | ED Back Pain ---
General Chief Complaint: Back Problems Stated Complaint: BACK PAIN Nursing Triage Note: PT AMB TO FT1 WITH C/O LOWER BACK PAIN SINCE SUNDAY. PT STATES PAIN RADIATES ALL ACROSS HIS LOWER BACK. DENIES INJURY Source of Information: Patient Exam Limitations: No Limitations History of Present Illness Date Seen by Provider: Jul 24, 2022 Time Seen by Provider: 18:22 Initial Comments Patient is a 27-year-old male who presents ED with low back pain. Pain started on Sunday. Described as a sharp pain worse with flexion, standing or certain movements. Radiates across his lower back. Denies of any specific injury. Denies of any bowel or urine cons, saddle paresthesia, lower extremity weakness. Similar pain in the past after picking a heavy mower. [place] a sharp pain that eventually resolved itself after 3 weeks. This pain feels worse. Patient denies of any fever, chills, drug use, abdominal pain, vomiting, diarrhea. Patient states he took a white pill from his friend with similar back pain with no improvement. No improvement with Tylenol. Allergies and Home Medications Allergies Coded Allergies: No Known Drug Allergies (Unverified , 09/16/19) Patient Home Medication List Home Medication List Reviewed: Yes Cephalexin (Keflex) 500 Mg Capsule, 500 MG PO BID Prescribed by: FREDDIE GARCÍA on 02/05/182100 Doxycycline Hyclate (Doxycycline Hyclate) 100 Mg Tablet, 100 MG PO BID Prescribed by: LILIBETH MAGALLON on 10/11/20 175 Methocarbamol (Methocarbamol) 500 Mg Tablet, 500 MG PO Q6-8HR Prescribed by: KAYLA RUBIO on 07/24/221828 Methylprednisolone (Methylprednisolone Dose Pack) 4 Mg Tab.ds.pk, 4 MG PO UD Prescribed by: KAYLA RUBIO on 07/24/221828 Naproxen (Naproxen) 500 Mg Tablet, 500 MG PO Q12H Prescribed by: KAYLA RUBIO on 07/24/221828 Review of Systems Constitutional: No chills, No diaphoresis, No malaise, No weakness EENTM: No eye pain, No tearing, No mouth pain, No mouth swelling, No throat pain, No throat swelling Respiratory: No cough Cardiovascular: No chest pain, No edema Gastrointestinal: No abdominal pain, No diarrhea, No nausea, No vomiting Genitourinary: No decreased output, No discharge Musculoskeletal: back pain; No gout, No joint pain Skin: No change in color, No change in hair/nails All Other Systems Reviewed Negative Unless Noted: Yes Past Vygdjff-Rohfeb-Yhcscz Hx Patient Social History Tobacco Use?: Yes Tobacco type used: Cigarettes Smoking Status: Current Everyday Smoker Substance use?: No Alcohol Use?: No Pt feels they are or have been: No Immunizations Up To Date Tetanus Booster (TDap): Less than 5yrs Influenza Vaccine Up-to-Date: Yes; Up-to-Date Seasonal Allergies Seasonal Allergies: No Past Medical History Surgeries: No Respiratory: No Cardiac: No Neurological: No Reproductive Disorders: No Sexually Transmitted Disease: No Gastrointestinal: Yes Gastroesophageal Reflux Musculoskeletal: No Endocrine: No HEENT: No Cancer: No Psychosocial: No Integumentary: No Blood Disorders: No Family Medical History No Pertinent Family Hx Physical Exam Vital Signs Vital Signs - First Documented 07/24/22 17:57 Temp 36.4 Pulse 74 Resp 18 B/P (MAP) 154/90 (111) Pulse Ox 98 O2 Delivery Room Air Capillary Refill : Less Than 3 Seconds Height, Weight, BMI Height: 6'2.00" Weight: 230lbs. oz. 104.410650wl; 32.00 BMI Method:Stated General Appearance: No Apparent Distress, WD/WN HEENT: PERRL/EOMI, TMs Normal, Normal ENT Inspection, Pharynx Normal Neck: Full Range of Motion, Normal Inspection, Non Tender, Supple Cardiovascular: Regular Rate, Rhythm, No Edema, No Gallop, No JVD, No Murmur Respiratory: Chest Non Tender, Lungs Clear, Normal Breath Sounds, No Accessory Muscle Use, No Respiratory Distress Gastrointestinal: Normal Bowel Sounds, No Organomegaly, No Pulsatile Mass Back: Vertebral Tenderness (Bar midline tenderness. Bilateral lumbar paraspin al muscle tenderness) Extremity: Normal Capillary Refill, Normal Inspection, Normal Range of Motion, Non Tender Neurologic/Psychiatric: Alert, Oriented x3, No Motor/Sensory Deficits, Normal Mood/Affect, tentmaker II-XII Norm as Tested Skin: Normal Color, Warm/Dry Procedures/Interventions Suture Size: 5-0 Progress/Results/Core Measures Results/Orders Lab Results Laboratory Tests Test 07/24/22 18:50 Range/Units Urine Color YELLOW Urine Clarity CLEAR Urine pH 6.0 5-9 Urine Specific [place] >=1.030 1.016-1.022 Urine Protein NEGATIVE NEGATIVE Urine Glucose (UA) NEGATIVE NEGATIVE Urine Ketones NEGATIVE NEGATIVE Urine Nitrite NEGATIVE NEGATIVE Urine Bilirubin NEGATIVE NEGATIVE Urine Urobilinogen 0.2 < = 1.0 MG/DL Urine Leukocyte Esterase NEGATIVE NEGATIVE Urine RBC (Auto) NEGATIVE NEGATIVE Urine RBC NONE /HPF Urine WBC NONE /HPF Urine Squamous Epithelial Cells NONE /HPF Urine Crystals NONE /LPF Urine Bacteria NEGATIVE /HPF Urine Casts PRESENT /LPF Urine Hyaline Casts RARE /LPF Urine Mucus NEGATIVE /LPF Urine Culture Indicated NO My Orders Orders - VIKTOR JUDD Ketorolac Injection (Toradol Injection) (07/24/22 18:30) Orphenadrine Inj (Ed Only) (Norflex Inje (07/24/22 18:30) Methylprednisolone Sod Succ (Solu-Medrol (07/24/22 18:30) Ua Culture If Indicated (07/24/22 18:31) Medications Given in ED Current Medications Medications Dose Ordered Sig/Nelson Route Start Time Stop Time Status Last Admin Dose Admin Ketorolac Tromethamine 30 mg ONCE ONCE IM 07/24/22 18:30 07/24/22 18:31 DC 07/24/22 18:32 30 MG Methylprednisolone Sodium Succinate 125 mg ONCE ONCE IM 07/24/22 18:30 07/24/22 18:31 DC 07/24/22 18:32 125 MG Orphenadrine Citrate 60 mg ONCE ONCE IM 07/24/22 18:30 07/24/22 18:31 DC 07/24/22 18:32 60 MG Vital Signs/I&O 07/24/22 07/24/22 17:57 19:17 Temp 36.4 Pulse 74 76 Resp 18 18 B/P (MAP) 154/90 (111) 156/89 Pulse Ox 98 98 O2 Delivery Room Air Room Air Blood Pressure Mean: 111 Departure Communication (PCP) Patient presents ED with low back pain. No known injury. 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 Does lift heavy objects but cannot recall any specific injury. History of similar back pain in the past after lifting a mower. Patient has been having some intermittent pain in bilateral legs. Appears to be worse with any type of movement. Suspect bulging disc, lumbosacral sprain or strain. He has no neurological red flag findings such as bowel or urine incontinence, saddle paresthesia, lower extremity weakness. Discussed anti-inflammatories, muscle relaxers, Medrol Dosepak. Discussed avoiding heavy lifting. Provided stretching to do at home. Recommend rest for the next 1 to 2 weeks. Due to the location of pain urinalysis was ordered which was negative for hematuria or infection. Recommend following up with PCP in 4 to 5 days for reevaluation. 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 Avoid any narcotics. Discussed anti-inflammatories and steroids at this time. Do not drive with muscle relaxers. Patient is afebrile and denies drug use. Due to no neurological red flag findings and no falls imaging was held at this time. Outpatient imaging for further evaluation. Impression Primary Impression: Back pain Disposition: 01 HOME, SELF-CARE Condition: Stable Departure-Patient Inst. Decision time for Depature: 18:26 Referrals: [facility] [place] [place],LOCAL PHYSICIAN (PCP) Primary Care Physician Patient Instructions: Low Back Pain (DC) Add. Discharge Instructions: Recommend stretching the lower back. Avoid excessive heavy lifting for the next 1 to 2 weeks. Recommend following up with her primary care physician for further evaluation. We will provide steroids, muscle relaxers and something for pain. Could take few weeks to improve. All discharge instructions reviewed with patient and/or family. Voiced understanding. Scripts Naproxen (Naproxen) 500 Mg Tablet 500 MG PO Q12H for Back Pain for 10 Days, #20 TAB Prov: VIKTOR JUDD 07/24/22 Methocarbamol (Methocarbamol) 500 Mg Tablet 500 MG PO Q6-8HR for Back Pain, #20 TAB Prov: VIKTOR JUDD 07/24/22 Methylprednisolone (Methylprednisolone Dose Pack) 4 Mg Tab.ds.pk 4 MG PO UD for 6 Days, #21 PKG PER DOSE PACK INSTRUCTIONS Prov: VIKTOR JUDD 07/24/22 VIKTOR JUDD Jul 24, 2022 18:28
[2022-07-24] MEDS ORDERED: NAPR-915 PO (18:29)
[2022-07-24] MEDS ORDERED: METH-731 PO (18:29)
[2022-07-24] MEDS ORDERED: METH4TAB10 PO (18:29)
[2022-07-24] MEDS ORDERED: KETOROLAC 60 MG/2 ML VIAL IM ONE (18:30)
[2022-07-24] MEDS ORDERED: methylPREDNISolone 125 MG (Solu-MEDROL) VIAL IM ONE (18:30)
[2022-07-24] MEDS ORDERED: ORPHENADRINE 60 MG/2 ML (NORFLEX) AMP (ED ONLY) IM ONE (18:30)
[2022-07-24 18:57] LABS: BILIRUBIN,URINE NEGATIVE (NEGATIVE); CLARITY,URINE CLEAR; COLOR,URINE YELLOW; GLUCOSE, URINE (UA) NEGATIVE (NEGATIVE); KETONES,URINE NEGATIVE (NEGATIVE); LEUKOCYTE ESTERASE ,URINE NEGATIVE (NEGATIVE); NITRITE,URINE NEGATIVE (NEGATIVE); PROTEIN,URINE NEGATIVE (NEGATIVE)
[2022-07-24 19:09] LABS: BACTERIA,URINE NEGATIVE /HPF; HYALINE CASTS, URINE RARE /LPF
[2022-07-24 19:17] VITALS: BP 156/89
== END 2022-07-24 19:17 | disposition home or self-care (01) ==
LOC: EDUNIT# 17:41 → ER 17:43
DX: M54.50 Low back pain, unspecified (principal); F17.210 Nicotine dependence, cigarettes, uncomplicated; Z28.310 Unvaccinated for COVID-19
CPT/HCPCS: 81000; 99284